=== PATIENT | male | born 1955 | race Caucasian/White ===

== ENCOUNTER 2025-03-07 14:11 | Emergency (ER) | payer MEDICARE, MEDICAID ==
[~2025-03-07] VITALS: Ht 177.8 cm; Wt 84.1 kg
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
[2025-03-07] MEDS ORDERED: HYDR-3965 PO (19:29)
[2025-03-07 19:41] VITALS: BP 132/86; PULSE 84; RESP 16; TEMP 98.4; O2SAT 98
== END 2025-03-07 19:43 | disposition home or self-care (01) ==
LOC: ER 14:12
DX: S82.831A Other fracture of upper and lower end of right fibula, initial encounter for closed fracture (principal); X58.XXXA Exposure to other specified factors, initial encounter; Y93.89 Activity, other specified; Y92.89 Other specified places as the place of occurrence of the external cause; Y99.8 Other external cause status
CPT/HCPCS: 29515; 99283; A6446; A6449; J7030

== ENCOUNTER → 2025-03-07 | Outpatient (CLI) | payer MEDICARE, MEDICAID ==
[~2025-03-07] MED LIST: HYDR-3965 PO
--- NOTE | 2025-03-07 14:18 | RADIOLOGY REPORT ---
CLINICAL INDICATION: ACUTE RIGHT ANKLE/FOOT/RLE PAIN TECHNIQUE: AP and lateral views of the right tibia and fibula were performed. DI TIB/FIB 2 VWS Comparison: Ankle radiographs from the same day. FINDINGS/IMPRESSION: 1. Displaced spiral versus oblique fracture of the right distal fibular metaphysis.. 2. Incidental findings include os trigonum, Achilles insertion enthesophyte, chondrocalcinosis of the medial and lateral menisci of the right knee, enthesophytes on the tibial tubercle and superior pole of the patella.
--- NOTE | 2025-03-07 14:21 | RADIOLOGY REPORT ---
EXAM: DI FOOT, COMPLETE (3VW MIN), DI ANKLE, COMPLETE(3VW MIN) CLINICAL INDICATION: ACUTE RIGHT ANKLE/FOOT/RLE PAIN TECHNIQUE: DI FOOT, COMPLETE (3VW MIN), DI ANKLE, COMPLETE(3VW MIN) Comparison: None FINDINGS/IMPRESSION: Minimally displaced lateral malleolar fracture. Anklex mortise intact.
--- NOTE | 2025-03-07 14:21 | RADIOLOGY REPORT ---
EXAM: DI ANKLE, COMPLETE(3VW MIN) CLINICAL INDICATION: ACUTE RIGHT ANKLE/FOOT/RLE PAIN TECHNIQUE: DI ANKLE, COMPLETE(3VW MIN) Comparison: None FINDINGS/IMPRESSION: Minimally displaced lateral malleolar fracture. Anklex mortise intact.
== END | disposition home or self-care (01) ==
LOC: RAD 13:20
PROVIDERS: ATTEND Nurse Practitioner
DX: M79.604 Pain in right leg (principal); M79.671 Pain in right foot; M25.571 Pain in right ankle and joints of right foot
CPT/HCPCS: 73590; 73610; 73630

== ENCOUNTER 2025-03-21 13:59 | Emergency (ER) | payer MEDICARE, MEDICAID ==
[~2025-03-21] VITALS: Ht 177.8 cm; Wt 69.0 kg
[2025-03-21 14:01] VITALS: TEMP 97.8
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
[2025-03-21] MEDS: HYDROcodone/acetaminophen 10/325mg tab PO ONE (17:01)
[2025-03-21 17:36] VITALS: BP 107/57; PULSE 66; RESP 16; O2SAT 98
== END 2025-03-21 17:37 | disposition home or self-care (01) ==
LOC: ER 14:00
DX: S82.401A Unspecified fracture of shaft of right fibula, initial encounter for closed fracture (principal); S82.61XA Displaced fracture of lateral malleolus of right fibula, initial encounter for closed fracture; K59.00 Constipation, unspecified; X58.XXXA Exposure to other specified factors, initial encounter; Y93.89 Activity, other specified; Y92.89 Other specified places as the place of occurrence of the external cause; Y99.8 Other external cause status
CPT/HCPCS: 99283; A6222; A6258; A6446; A6449